=== PATIENT | male | born 1995 | race Caucasian/White ===

== ENCOUNTER 2020-11-13 17:17 | Inpatient (IN) | payer MEDICAID ==
[~2020-11-13] VITALS: Ht 167.6 cm; Wt 55.6 kg
[2020-11-13 21:53] LABS: BASOPHILS % 0.4 % (0.0-2.0); EOSINOPHILS % 1.3 % (0.0-5.0); HEMOGLOBIN. 15.1 g/dL (14.0-18.0); LYMPHOCYTES % 23.1 % (20.0-50.0); MEAN CORPUSCULAR HEMOGLOBIN 30.5 pg (28.0-32.0); MEAN PLATELET VOLUME 8.3 fl (7.4-10.4); MONOCYTES % 8.5 % (2.0-8.0); NEUTROPHILS % 66.7 % (40.0-76.0); PLATELET 301 x1000/uL (130-400); RED BLOOD CELL COUNT 4.94 mill/uL (4.7-6.1)
[2020-11-13 22:00] LABS: CHLORIDE 109 mEq/L (98-107)
[2020-11-13 22:06] LABS: ETHANOL BLOOD < 10 mg/dL
[2020-11-13 23:36] LABS: CLARITY URINE CLEAR (CLEAR); COLOR URINE YELLOW (YELLOW); KETONES URINE NEGATIVE (NEGATIVE); LEUKOCYTE ESTERASE URINE NEGATIVE (NEGATIVE); NITRITE URINE NEGATIVE (NEGATIVE); OCCULT BLOOD URINE TRACE (NEGATIVE); PROTEIN URINE 2+ (NEGATIVE); SPECIFIC GRAVITY URINE 1.016 (1.005-1.030); UROBILINOGEN URINE 0.2 E.U./dL (0.2-1.0)
[2020-11-13] MEDS ORDERED: DEXTROSE 50% WATER 50ML SYRINGE IV ONE (23:45)
[2020-11-13 23:48] LABS: *AMPHETAMINES SCREEN URINE NEGATIVE (NEGATIVE); *BARBITURATES SCREEN URINE NEGATIVE (NEGATIVE); *BENZODIAZEPINES SCREEN URINE NEGATIVE (NEGATIVE); *COCAINE SCREEN URINE NEGATIVE (NEGATIVE)
[2020-11-13 23:49] LABS: CANNABINOID URINE SCREEN PRESUMTIVE POSITIVE (NEGATIVE); METHADONE URINE SCREEN NEGATIVE (NEGATIVE); OPIATES URINE SCREEN NEGATIVE (NEGATIVE); PHENCYCLIDINE URINE SCREEN NEGATIVE (NEGATIVE)
[2020-11-14] MEDS ORDERED: ACETAMINOPHEN 325MG TABLET PO PRN (01:00)
[2020-11-14] MEDS ORDERED: ONDANSETRON HCL 4MG/2ML INJ IV PRN (01:00)
[2020-11-14] MEDS ORDERED: SODIUM CHLORIDE 0.9% 1,000 ML IV ONE (02:00)
[2020-11-14] MEDS ORDERED: FOLIC ACID 1 MG, THIAMINE HCL 100 MG in DEXTROSE 5% WATER 1,000 ML IV NR (03:00)
[2020-11-14] MEDS ORDERED: MULTIVITAMINS,THER W-MINERALS TABLET PO NR (03:00)
[2020-11-14 13:35] VITALS: BP 107/64
[2020-11-14 14:00] VITALS: BP 124/80
[2020-11-14 16:00] VITALS: BP 124/80
[2020-11-14 18:00] VITALS: BP 116/64
[2020-11-14 20:00] VITALS: BP 121/84
[2020-11-14 22:00] VITALS: BP 118/68
[2020-11-14 22:09] LABS: CHLORIDE 111 mEq/L (98-107)
[2020-11-15] VITALS (12 sets, daily range): BP systolic 97–138; BP diastolic 57–79
[2020-11-15 06:59] LABS: CHLORIDE 111 mEq/L (98-107)
[2020-11-15 07:07] LABS: BASOPHILS % 0.4 % (0.0-2.0); EOSINOPHILS % 1.6 % (0.0-5.0); HEMATOCRIT. 41.1 % (42.0-52.0); HEMOGLOBIN. 14.2 g/dL (14.0-18.0); LYMPHOCYTES % 23.3 % (20.0-50.0); MEAN CORPUSCULAR HEMOGLOBIN 30.6 pg (28.0-32.0); MEAN CORPUSCULAR VOLUME 88.5 fL (80.0-94.0); MEAN PLATELET VOLUME 8.5 fl (7.4-10.4); NEUTROPHILS % 65.7 % (40.0-76.0); PLATELET 272 x1000/uL (130-400); RED BLOOD CELL COUNT 4.64 mill/uL (4.7-6.1); RED CELL DISTRIBUTION WIDTH 13.4 % (11.6-14.6)
[2020-11-15] MEDS ORDERED: INSULIN GLARGINE UD 100 UNITS/ML SYR SUBCUT SCH ×2 (22:00)
[2020-11-16] VITALS (8 sets, daily range): BP systolic 117–128; BP diastolic 49–77
[2020-11-16 08:20] LABS: CHLORIDE 106 mEq/L (98-107)
[2020-11-16] MEDS ORDERED: INSULIN LISPRO 100 UNITS/ML SUBCUT SCH (13:00)
[2020-11-16] MEDS ORDERED: INSULIN GLARGINE UD 100 UNITS/ML SYR SUBCUT SCH (22:00)
== END 2020-11-16 19:23 | disposition home or self-care (01) | DRG 52 ==
LOC: ER 17:17 → EDBD 17:17 → MICUSO 11-14 00:49 → EDBEDREQDT 11-14 00:53 → EDBEDREQTM 11-14 00:53 → EDBEDREQ 11-14 00:53 → EDBEDREQSVC 11-14 01:21 → EDBEDREQTM 11-14 01:21 → 5EST 11-14 13:12
PROVIDERS: ADMIT Family Medicine Adult Medicine; ATTEND Family Medicine Adult Medicine
DX: G92.8 Other toxic encephalopathy (principal); E10.649 Type 1 diabetes mellitus with hypoglycemia without coma; F25.9 Schizoaffective disorder, unspecified; F41.9 Anxiety disorder, unspecified; R00.0 Tachycardia, unspecified; T50.995A Adverse effect of other drugs, medicaments and biological substances, initial encounter; D72.829 Elevated white blood cell count, unspecified; F17.200 Nicotine dependence, unspecified, uncomplicated; Z79.4 Long term (current) use of insulin; Z91.14 Patient's other noncompliance with medication regimen; Y92.89 Other specified places as the place of occurrence of the external cause; Z79.899 Other long term (current) drug therapy
CPT/HCPCS: 36415; 80048; 80053; 80305; 80307; 80320; 80329; 81003; 82962; 83036; 84443; 85025; 93005; 99285; J1815; J3411; J3490; J7070; G0480

== ENCOUNTER 2021-01-08 21:40 | Inpatient (IN) | payer MEDICAID ==
[~2021-01-08] VITALS: Ht 160 cm; Wt 42.6 kg
[2021-01-08] MEDS ORDERED: ONDANSETRON HCL 4MG/2ML INJ IV ONE (22:00)
[2021-01-08] MEDS ORDERED: SODIUM CHLORIDE 0.9% 1,000 ML IV ONE ×3 (22:00→23:15)
[2021-01-08] MEDS ORDERED: INSULIN REGULAR (HUMULIN R) 300UNITS/3ML VIAL SUBCUT NR (22:29)
[2021-01-08] MEDS ORDERED: INSULIN REGULAR (HUMULIN R) UD 100 UNITS/ML SYR SUBCUT ONE (22:30)
[2021-01-08 22:45] LABS: BASOPHILS % 0.4 % (0.0-2.0); EOSINOPHILS % 0.7 % (0.0-5.0); HEMATOCRIT. 47.3 % (42.0-52.0); HEMOGLOBIN. 16.3 g/dL (14.0-18.0); LYMPHOCYTES % 29.1 % (20.0-50.0); MEAN CORPUSCULAR HEMOGLOBIN 29.8 pg (28.0-32.0); MEAN CORPUSCULAR VOLUME 86.6 fL (80.0-94.0); MEAN PLATELET VOLUME 8.9 fl (7.4-10.4); MONOCYTES % 7.1 % (2.0-8.0); NEUTROPHILS % 62.7 % (40.0-76.0); PLATELET 338 x1000/uL (130-400); RED BLOOD CELL COUNT 5.47 mill/uL (4.7-6.1); RED CELL DISTRIBUTION WIDTH 12.9 % (11.6-14.6)
[2021-01-08 22:48] LABS: CHLORIDE 107 mEq/L (98-107)
[2021-01-08 22:52] LABS: ETHANOL BLOOD < 10 mg/dL
[2021-01-09] MEDS ORDERED: DEXT 5% IV NR ×2 (00:30→02:00)
[2021-01-09] MEDS ORDERED: ACETYLCYSTEINE IV NR ×2 (00:30→02:00)
[2021-01-09] MEDS ORDERED: SODIUM BICARBONATE 8.4% 1 MEQ/ML 50ML SYR IV ONE ×3 (00:30)
[2021-01-09] MEDS ORDERED: WATER IV NR ×2 (00:30→02:00)
[2021-01-09 00:54] LABS: BASOPHILS % 0.3 % (0.0-2.0); EOSINOPHILS % 0.1 % (0.0-5.0); LYMPHOCYTES % 8.3 % (20.0-50.0); MEAN CORPUSCULAR HEMOGLOBIN 29.3 pg (28.0-32.0); MEAN PLATELET VOLUME 8.4 fl (7.4-10.4); MONOCYTES % 3.5 % (2.0-8.0); NEUTROPHILS % 87.8 % (40.0-76.0); PLATELET 286 x1000/uL (130-400); RED BLOOD CELL COUNT 5.12 mill/uL (4.7-6.1); RED CELL DISTRIBUTION WIDTH 12.8 % (11.6-14.6)
[2021-01-09 01:14] LABS: CHLORIDE 110 mEq/L (98-107)
[2021-01-09 01:54] LABS: PARTIAL THROMBOPLASTIN TIME 22.9 sec (23.4-31.0); PROTHROMBIN TIME 10.7 sec (9.6-11.0)
[2021-01-09 02:22] LABS: CLARITY URINE CLEAR (CLEAR); COLOR URINE YELLOW (YELLOW); KETONES URINE 2+ (NEGATIVE); LEUKOCYTE ESTERASE URINE NEGATIVE (NEGATIVE); NITRITE URINE NEGATIVE (NEGATIVE); OCCULT BLOOD URINE TRACE (NEGATIVE); PROTEIN URINE 2+ (NEGATIVE); SPECIFIC GRAVITY URINE 1.027 (1.005-1.030); UROBILINOGEN URINE 0.2 E.U./dL (0.2-1.0)
[2021-01-09 02:32] LABS: *AMPHETAMINES SCREEN URINE NEGATIVE (NEGATIVE); *BARBITURATES SCREEN URINE NEGATIVE (NEGATIVE); *BENZODIAZEPINES SCREEN URINE NEGATIVE (NEGATIVE)
[2021-01-09 02:33] LABS: *COCAINE SCREEN URINE NEGATIVE (NEGATIVE); CANNABINOID URINE SCREEN NEGATIVE (NEGATIVE); METHADONE URINE SCREEN NEGATIVE (NEGATIVE); OPIATES URINE SCREEN NEGATIVE (NEGATIVE); PHENCYCLIDINE URINE SCREEN NEGATIVE (NEGATIVE)
[2021-01-09] MEDS ORDERED: INSULIN LISPRO 100 UNITS/ML SUBCUT NR (05:45)
[2021-01-09] MEDS ORDERED: ACETYLCYSTEINE IV ONE (07:00)
[2021-01-09] MEDS ORDERED: DEXTROSE 5% IV ONE (07:00)
[2021-01-09] MEDS ORDERED: WATER IV ONE (07:00)
[2021-01-09] MEDS ORDERED: SODIUM BICARBONATE 50 MEQ in DEXTROSE 5% WATER 1,000 ML IV SCH (07:30)
[2021-01-09 11:40] VITALS: BP 143/76
[2021-01-09 12:00] VITALS: BP 143/76
[2021-01-09] MEDS ORDERED: DEXTROSE 50% WATER 50ML SYRINGE IV PRN (12:15)
[2021-01-09] MEDS ORDERED: ONDANSETRON HCL 4MG/2ML INJ IV PRN (12:15)
[2021-01-09] MEDS: BLOOD SUGAR DIAGNOSTIC STRIP TEST SCH ×3 (13:00→21:31)
[2021-01-09] MEDS ORDERED: INSULIN GLARGINE UD 100 UNITS/ML SYR SUBCUT NR (13:00)
[2021-01-09] MEDS: INSULIN LISPRO 100 UNITS/ML SUBCUT SCH ×3 (13:36→21:30)
[2021-01-09 16:02] VITALS: BP 116/58
[2021-01-09] MEDS: ONDANSETRON HCL 4MG/2ML INJ IV PRN (17:03)
[2021-01-09 20:00] VITALS: BP 118/61
[2021-01-09 20:22] LABS: CHLORIDE 96 mEq/L (98-107)
[2021-01-09] MEDS: INSULIN GLARGINE UD 100 UNITS/ML SYR SUBCUT SCH (21:31)
[2021-01-09] MEDS: KCL 20MEQ/100ML PREMIX 100 ML IV SCH (22:37)
[2021-01-10] VITALS: BP 122/61
[2021-01-10] MEDS: KCL 20MEQ/100ML PREMIX 100 ML IV SCH ×4 (00:52→17:11)
[2021-01-10] MEDS: ONDANSETRON HCL 4MG/2ML INJ IV PRN (01:34)
[2021-01-10 01:58] LABS: INR 1.1; PROTHROMBIN TIME 11.4 sec (9.6-11.0)
[2021-01-10 04:00] VITALS: BP 119/65
[2021-01-10] MEDS: BLOOD SUGAR DIAGNOSTIC STRIP TEST SCH ×4 (07:20→21:56)
[2021-01-10 07:39] LABS: BASOPHILS % 0.1 % (0.0-2.0); EOSINOPHILS % 0.6 % (0.0-5.0); HEMATOCRIT. 38.9 % (42.0-52.0); HEMOGLOBIN. 13.4 g/dL (14.0-18.0); LYMPHOCYTES % 21.8 % (20.0-50.0); MEAN CORPUSCULAR HEMOGLOBIN 29.5 pg (28.0-32.0); MEAN CORPUSCULAR VOLUME 85.7 fL (80.0-94.0); MEAN PLATELET VOLUME 8.5 fl (7.4-10.4); MONOCYTES % 7.3 % (2.0-8.0); NEUTROPHILS % 70.2 % (40.0-76.0); PLATELET 271 x1000/uL (130-400); RED BLOOD CELL COUNT 4.54 mill/uL (4.7-6.1); RED CELL DISTRIBUTION WIDTH 12.9 % (11.6-14.6)
[2021-01-10] MEDS: INSULIN LISPRO 100 UNITS/ML SUBCUT SCH ×4 (07:50→22:03)
[2021-01-10 08:00] VITALS: BP 108/50
[2021-01-10 08:00] LABS: CHLORIDE 103 mEq/L (98-107)
[2021-01-10] MEDS ORDERED: POTASSIUM CHLORIDE INJ 40 MEQ in DEXT 5% WATER 250 ML IV ONE (09:30)
[2021-01-10] MEDS ORDERED: POTASSIUM CHLORIDE 20MEQ TABLET SR PO NR (09:30)
[2021-01-10] MEDS: INSULIN GLARGINE UD 100 UNITS/ML SYR SUBCUT SCH ×2 (09:52→22:03)
[2021-01-10 12:00] VITALS: BP 113/68
[2021-01-10 16:00] VITALS: BP 126/70
[2021-01-10] MEDS: ARIPIPRAZOLE 5MG TABLET PO SCH (17:11)
[2021-01-10] MEDS ORDERED: CEFTRIAXONE 1 G PREMIX 50 ML IV SCH (19:30)
[2021-01-10 20:00] VITALS: BP 124/63
[2021-01-10] MEDS: CEFTRIAXONE 1,000 MG in DEXTROSE 5% WATER 50 ML IV SCH (21:59)
[2021-01-11] VITALS: BP 126/71
[2021-01-11 04:00] VITALS: BP 104/54
[2021-01-11] MEDS: BLOOD SUGAR DIAGNOSTIC STRIP TEST SCH ×4 (06:32→21:00)
[2021-01-11 06:57] LABS: CHLORIDE 107 mEq/L (98-107)
[2021-01-11] MEDS: INSULIN LISPRO 100 UNITS/ML SUBCUT SCH ×4 (07:15→21:11)
[2021-01-11 07:32] LABS: BASOPHILS % 0.3 % (0.0-2.0); EOSINOPHILS % 1.5 % (0.0-5.0); HEMATOCRIT. 37.3 % (42.0-52.0); HEMOGLOBIN. 12.8 g/dL (14.0-18.0); LYMPHOCYTES % 32.6 % (20.0-50.0); MEAN CORPUSCULAR HEMOGLOBIN 29.9 pg (28.0-32.0); MEAN CORPUSCULAR VOLUME 86.9 fL (80.0-94.0); MEAN PLATELET VOLUME 8.9 fl (7.4-10.4); MONOCYTES % 11.6 % (2.0-8.0); PLATELET 239 x1000/uL (130-400); RED BLOOD CELL COUNT 4.29 mill/uL (4.7-6.1); RED CELL DISTRIBUTION WIDTH 12.8 % (11.6-14.6)
[2021-01-11 08:00] VITALS: BP 108/61
[2021-01-11] MEDS: ARIPIPRAZOLE 5MG TABLET PO SCH ×2 (08:24→17:01)
[2021-01-11] MEDS: ONDANSETRON HCL 4MG/2ML INJ IV PRN (08:43)
[2021-01-11] MEDS: INSULIN GLARGINE UD 100 UNITS/ML SYR SUBCUT SCH ×2 (10:31→21:11)
[2021-01-11 12:00] VITALS: BP 110/58
[2021-01-11 16:00] VITALS: BP 114/60
[2021-01-11 20:00] VITALS: BP 109/53
[2021-01-11] MEDS: CEFTRIAXONE 1,000 MG in DEXTROSE 5% WATER 50 ML IV SCH (21:06)
[2021-01-12] VITALS: BP 108/58
[2021-01-12 04:00] VITALS: BP 95/51
[2021-01-12 06:00] LABS: BASOPHILS % 0.5 % (0.0-2.0); EOSINOPHILS % 2.7 % (0.0-5.0); HEMATOCRIT. 36.9 % (42.0-52.0); HEMOGLOBIN. 12.7 g/dL (14.0-18.0); LYMPHOCYTES % 41.7 % (20.0-50.0); MEAN CORPUSCULAR HEMOGLOBIN 29.7 pg (28.0-32.0); MEAN CORPUSCULAR VOLUME 86.6 fL (80.0-94.0); MEAN PLATELET VOLUME 8.6 fl (7.4-10.4); MONOCYTES % 8.5 % (2.0-8.0); NEUTROPHILS % 46.6 % (40.0-76.0); PLATELET 226 x1000/uL (130-400); RED BLOOD CELL COUNT 4.26 mill/uL (4.7-6.1); RED CELL DISTRIBUTION WIDTH 12.8 % (11.6-14.6)
[2021-01-12 06:17] LABS: CHLORIDE 108 mEq/L (98-107)
[2021-01-12] MEDS: BLOOD SUGAR DIAGNOSTIC STRIP TEST SCH ×4 (07:19→20:40)
[2021-01-12] MEDS: INSULIN LISPRO 100 UNITS/ML SUBCUT SCH ×4 (07:50→21:21)
[2021-01-12 07:59] VITALS: BP 103/60
[2021-01-12] MEDS: ARIPIPRAZOLE 5MG TABLET PO SCH ×2 (08:37→17:21)
[2021-01-12] MEDS: INSULIN GLARGINE UD 100 UNITS/ML SYR SUBCUT SCH ×2 (09:48→21:21)
[2021-01-12 12:00] VITALS: BP 107/65
[2021-01-12 16:00] VITALS: BP 115/66
[2021-01-12 16:53] LABS: CHLORIDE 106 mEq/L (98-107)
[2021-01-12 20:00] VITALS: BP 120/69
[2021-01-12] MEDS: CEFTRIAXONE 1,000 MG in DEXTROSE 5% WATER 50 ML IV SCH (21:13)
[2021-01-13] VITALS (8 sets, daily range): BP systolic 111–128; BP diastolic 65–77
[2021-01-13] MEDS: BLOOD SUGAR DIAGNOSTIC STRIP TEST SCH ×4 (06:56→20:37)
[2021-01-13] MEDS: ARIPIPRAZOLE 5MG TABLET PO SCH ×2 (08:50→16:46)
[2021-01-13] MEDS: INSULIN LISPRO 100 UNITS/ML SUBCUT SCH ×4 (08:52→20:37)
[2021-01-13] MEDS: INSULIN GLARGINE UD 100 UNITS/ML SYR SUBCUT SCH ×2 (10:34→22:13)
[2021-01-13] MEDS: ONDANSETRON HCL 4MG/2ML INJ IV PRN (16:44)
[2021-01-13] MEDS ORDERED: ACETAMINOPHEN 325MG TABLET PO PRN (16:45)
[2021-01-13] MEDS: CEFTRIAXONE 1,000 MG in DEXTROSE 5% WATER 50 ML IV SCH (20:36)
== END 2021-01-13 22:40 | DRG 817 ==
LOC: ER 21:40 → 6WST 01-09 03:37 → ENRESERV 01-09 07:22
PROVIDERS: ADMIT Internal Medicine; ATTEND Internal Medicine
DX: T39.1X2A Poisoning by 4-Aminophenol derivatives, intentional self-harm, initial encounter (principal); R45.851 Suicidal ideations; F29 Unspecified psychosis not due to a substance or known physiological condition; N39.0 Urinary tract infection, site not specified; E87.8 Other disorders of electrolyte and fluid balance, not elsewhere classified; E11.65 Type 2 diabetes mellitus with hyperglycemia; B96.20 Unspecified Escherichia coli [E. coli] as the cause of diseases classified elsewhere; E87.6 Hypokalemia; T39.312A Poisoning by propionic acid derivatives, intentional self-harm, initial encounter; F10.10 Alcohol abuse, uncomplicated; F12.10 Cannabis abuse, uncomplicated; F41.9 Anxiety disorder, unspecified; Z20.822 Contact with and (suspected) exposure to COVID-19; Z83.3 Family history of diabetes mellitus; Y92.89 Other specified places as the place of occurrence of the external cause; Z91.52 Personal history of nonsuicidal self-harm
CPT/HCPCS: 36415; 71045; 80048; 80053; 80305; 80307; 80320; 80329; 81003; 82962; 84145; 84450; 84460; 85025; 87077; 87186; 87426; 93005; 99291; C9803; J0132; J0696; J1815; J2405; J3480; J3490; J7030; J7060; J7070; U0003; U0005; G0480

== ENCOUNTER 2023-11-14 18:50 | Emergency (ER) | payer MEDICAID ==
[~2023-11-14] VITALS: Ht 160 cm; Wt 54.3 kg
[~2023-11-14 18:50] MED LIST: AMLO10TA80 PO; ATOR20TA65 PO; CHOL400D7 PO; ERGO1250 PO; EZET10TA81 PO; HYDR12.54 PO; INSLIS SUBCUT; INSU100I28 SQ; INSU300I12 SUBCUT; LEVO25TA7 PO; LISI40TA13 PO; LOSA25TA26 PO; MULT-207 PO; SPIR25TA6 PO; [UNRECOGNIZED DRUG - CODE] MC
[2023-11-14 18:51] VITALS: O2SAT 99
[2023-11-14 19:02] VITALS: TEMP 98.2; O2SAT 100
[2023-11-14 20:32] LABS: BASOPHILS % 0.6 % (0.0-2.0); EOSINOPHILS % 2.4 % (0.0-5.0); HEMATOCRIT. 25.8 % (42.0-52.0); HEMOGLOBIN. 8.8 g/dL (14.0-18.0); LYMPHOCYTES % 19.8 % (20.0-50.0); MEAN CORPUSCULAR HEMOGLOBIN 31.6 pg (28.0-32.0); MEAN CORPUSCULAR VOLUME 92.9 fL (80.0-94.0); MONOCYTES % 11.7 % (2.0-8.0); NEUTROPHILS % 65.5 % (40.0-76.0); RED BLOOD CELL COUNT 2.78 mill/uL (4.7-6.1); RED CELL DISTRIBUTION WIDTH 15.1 % (11.6-14.6); WHITE BLOOD COUNT 12.4 x1000/uL (4.5-11.0)
[2023-11-14 20:33] LABS: POTASSIUM 3.7 mEq/L (3.5-5.1)
[2023-11-14 20:34] LABS: CALCIUM 9.1 mg/dL (8.7-10.4)
[2023-11-14 20:37] LABS: DIFFERENTIAL COMMENT 1
[2023-11-14 20:39] LABS: CREATININE 3.8 mg/dL (0.6-1.3)
[2023-11-14 21:14] LABS: MEAN PLATELET VOLUME 8.9 fl (7.4-10.4); PLATELET 320 x1000/uL (130-400)
[2023-11-15 00:37] LABS: CLARITY URINE CLEAR (CLEAR); COLOR URINE YELLOW (YELLOW); GLUCOSE URINE 2+ (NEGATIVE); KETONES URINE NEGATIVE (NEGATIVE); LEUKOCYTE ESTERASE URINE NEGATIVE (NEGATIVE); NITRITE URINE NEGATIVE (NEGATIVE); OCCULT BLOOD URINE TRACE (NEGATIVE); PH URINE 7.5 (4.5-8.0); PROTEIN URINE 3+ (NEGATIVE); SPECIFIC GRAVITY URINE 1.024 (1.005-1.030); UROBILINOGEN URINE 0.2 E.U./dL (0.2-1.0)
[2023-11-15] MEDS ORDERED: HYDROCODONE/ACETAMINOPHEN 5/325MG TABLET PO ONE (00:45)
[2023-11-15 02:34] LABS: WBC URINE 0-2 /hpf (0-2)
[2023-11-15 02:37] LABS: SQUAMOUS EPITHELIAL CELL URINE 1+ /lpf (RARE/1+)
[2023-11-15 02:45] VITALS: BP 129/58; PULSE 99; RESP 18
[2023-11-15 02:45] LABS: BACTERIA URINE TRACE
[2023-11-15] MEDS: HYDROCODONE/ACETAMINOPHEN 5/325MG TABLET PO NR (02:45)
[2023-11-15] MEDS ORDERED: T3 PO (03:20)
== END 2023-11-15 03:47 | disposition home or self-care (01) ==
LOC: ER 18:50
DX: M54.50 Low back pain, unspecified (principal); I12.0 Hypertensive chronic kidney disease with stage 5 chronic kidney disease or end stage renal disease; E11.22 Type 2 diabetes mellitus with diabetic chronic kidney disease; D64.9 Anemia, unspecified; N18.6 End stage renal disease; Z99.2 Dependence on renal dialysis; Z79.899 Other long term (current) drug therapy; Z79.4 Long term (current) use of insulin; Z88.5 Allergy status to narcotic agent
CPT/HCPCS: 36415; 72100; 80048; 81003; 85025; 99284

== ENCOUNTER 2024-08-21 08:03 | Emergency (ER) | payer MEDICAID ==
[~2024-08-21] VITALS: Ht 160 cm; Wt 56.0 kg
[~2024-08-21 08:03] MED LIST changes: -AMLO10TA80 PO; +CARV6.2548 MT; -CHOL400D7 PO; +FERR-63 PO; +FURO40TA5 PO; -INSU300I12 SUBCUT; -LISI40TA13 PO
[2024-08-21] MEDS: DICYCLOMINE 10 MG/5 ML ORAL SYR PO STA (08:21)
[2024-08-21] MEDS: MAGNESIUM/ALUMINUM HYDROXIDE/SIMETHICONE 30ML UDC PO STA (08:35)
[2024-08-21] MEDS: ONDANSETRON 4MG ODT PO STA (08:35)
[2024-08-21] MEDS: DICYCLOMINE HCL 10MG CAPSULE PO SCH (08:35)
[2024-08-21 08:54] LABS: BASOPHILS % 0.6 % (0.0-2.0); EOSINOPHILS % 1.5 % (0.0-5.0); HEMATOCRIT. 25.8 % (42.0-52.0); HEMOGLOBIN. 8.5 g/dL (14.0-18.0); LYMPHOCYTES % 9.6 % (20.0-50.0); MEAN PLATELET VOLUME 9.7 fl (7.4-10.4); MONOCYTES % 6.8 % (2.0-8.0); NEUTROPHILS % 81.5 % (40.0-76.0); PLATELET 155 x1000/uL (130-400); RED BLOOD CELL COUNT 2.77 mill/uL (4.7-6.1); RED CELL DISTRIBUTION WIDTH 17.7 % (11.6-14.6)
[2024-08-21 09:04] LABS: UREA NITROGEN BLOOD 68 mg/dL (9-23)
[2024-08-21 09:05] LABS: ASPARTATE AMINOTRANSFERASE 20 IU/L (<34)
[2024-08-21 09:06] LABS: BILIRUBIN DIRECT 0.3 mg/dL (<=3.0); BILIRUBIN TOTAL 0.8 mg/dL (0.1-1.0); PROTEIN TOTAL 7.5 g/dL (6.0-8.3)
[2024-08-21 09:43] LABS: CREATININE 10.3 mg/dL (0.6-1.3)
[2024-08-21] MEDS ORDERED: CALCIUM GLUCONATE 1,000 MG in DEXT 5% WATER 100 ML IV ONE (09:45)
[2024-08-21] MEDS ORDERED: INSULIN REGULAR (HUMULIN R) 1000UNITS/10ML VIAL IV ONE (09:45)
[2024-08-21 10:10] VITALS: PULSE 82; RESP 20; O2SAT 100
[2024-08-21] MEDS: ALBUTEROL (0.083%) 2.5MG/3ML NEB HHN SCH (10:10)
[2024-08-21 10:28] VITALS: TEMP 36.7; O2SAT 100
[2024-08-21 10:52] VITALS: BP 146/71; PULSE 81; RESP 19; TEMP 98.06
[2024-08-21] MEDS: CALCIUM GLUCONATE 1GM PREMIX 50 ML IV NR (11:23)
[2024-08-21] MEDS: INSULIN REGULAR (HUMULIN R) 1000UNITS/10ML VIAL IV NR (12:43)
[2024-08-21] MEDS: DEXTROSE 50% WATER 50ML SYRINGE IV ONE (12:44)
[2024-08-21] MEDS ORDERED: HYDROCODONE/ACETAMINOPHEN 5/325MG TABLET PO PRN (14:00)
[2024-08-21] MEDS ORDERED: ONDANSETRON HCL 4MG/2ML INJ IV PRN (14:00)
[2024-08-21] MEDS ORDERED: HYDROCODONE/ACETAMINOPHEN 7.5/325MG TABLET PO PRN (14:00)
[2024-08-21] MEDS ORDERED: MORPHINE SULFATE 2 MG/ML INJ (NOT FOR IM USE) IV PRN (14:00)
[2024-08-21] MEDS ORDERED: ACETAMINOPHEN 325MG TABLET PO PRN (14:00)
[2024-08-21] MEDS ORDERED: IPRATROPIUM/ALBUTEROL 0.5-3(2.5)MG/3ML NEB NEB PRN (14:00)
[2024-08-21] MEDS ORDERED: MAGNESIUM/ALUMINUM HYDROXIDE/SIMETHICONE 30ML UDC PO PRN (14:00)
[2024-08-21] MEDS ORDERED: ENOXAPARIN 30MG/0.3ML SYR SUBCUT SCH (21:00)
[2024-08-22] MEDS ORDERED: LISINOPRIL 10MG TABLET PO SCH (09:00)
== END 2024-08-21 13:18 | disposition left against medical advice (07) ==
LOC: ER 08:06 → EDBEDREQ 10:17 → EDBEDREQTM 10:17 → ENRESERV 11:03 → CANBEDREQ 12:19 → ER 13:18
DX: E87.5 Hyperkalemia (principal); E11.22 Type 2 diabetes mellitus with diabetic chronic kidney disease; E11.319 Type 2 diabetes mellitus with unspecified diabetic retinopathy without macular edema; E11.65 Type 2 diabetes mellitus with hyperglycemia; I13.2 Hypertensive heart and chronic kidney disease with heart failure and with stage 5 chronic kidney disease, or end stage renal disease; D63.1 Anemia in chronic kidney disease; I50.9 Heart failure, unspecified; N18.6 End stage renal disease; Z55.6 Problems related to health literacy; Z79.4 Long term (current) use of insulin; Z79.890 Hormone replacement therapy; Z79.899 Other long term (current) drug therapy; Z91.158 Patient's noncompliance with renal dialysis for other reason; Z99.2 Dependence on renal dialysis
CPT/HCPCS: 80076; 80048; 83690; 85025; 36415; 71045; 93005; 96374; 96375; 99291; Q0162; J1815; Z7610; J0610; J7060

== ENCOUNTER 2024-11-15 19:40 | Inpatient (IN) | payer MEDICARE, MEDICAID ==
[~2024-11-15] VITALS: Ht 160 cm; Wt 49.9 kg
[2024-11-15 20:35] VITALS: O2SAT 96
[2024-11-15 23:27] LABS: BASOPHILS % 0.7 % (0.0-2.0); EOSINOPHILS % 2.1 % (0.0-5.0); HEMATOCRIT. 34.3 % (42.0-52.0); HEMOGLOBIN. 11.1 g/dL (14.0-18.0); LYMPHOCYTES % 20.3 % (20.0-50.0); MEAN PLATELET VOLUME 9.3 fl (7.4-10.4); MONOCYTES % 9.3 % (2.0-8.0); NEUTROPHILS % 67.6 % (40.0-76.0); PLATELET 206 x1000/uL (130-400); RED BLOOD CELL COUNT 3.66 mill/uL (4.7-6.1); RED CELL DISTRIBUTION WIDTH 18.7 % (11.6-14.6)
[2024-11-15 23:41] LABS: UREA NITROGEN BLOOD 32 mg/dL (9-23)
[2024-11-15 23:43] LABS: ASPARTATE AMINOTRANSFERASE 18 IU/L (<34); BILIRUBIN DIRECT 0.7 mg/dL (<=3.0); TROPONIN I HIGH SENSITIVITY 15 ng/L (3.0-53)
[2024-11-15 23:44] LABS: BILIRUBIN TOTAL 1.3 mg/dL (0.1-1.0); PROTEIN TOTAL 7.4 g/dL (6.0-8.3)
[2024-11-15 23:47] LABS: CREATININE 4.9 mg/dL (0.6-1.3)
[2024-11-16] VITALS (11 sets, daily range): BP systolic 133–170; BP diastolic 69–94; PULSE 74–110; RESP 18–20; TEMP 35.6–37; O2SAT 75–100
[2024-11-16] MEDS: HYDRALAZINE 20MG/ML VIAL IV NR (00:52)
[2024-11-16] MEDS: HYDRALAZINE 20MG/ML VIAL IV PRN (06:00)
[2024-11-16] MEDS: BLOOD SUGAR DIAGNOSTIC STRIP TEST SCH (06:02)
[2024-11-16] MEDS: INSULIN LISPRO 100 UNITS/ML SUBCUT SCH (06:26)
[2024-11-16] MEDS ORDERED: FOLI0.8T23 MT (08:20)
[2024-11-16] MEDS ORDERED: CALC-26 PO (08:20)
[2024-11-16] MEDS: ATORVASTATIN CALCIUM 40MG TABLET PO SCH (08:21)
[2024-11-16] MEDS: CARVEDILOL 6.25 MG TABLET PO SCH (08:22)
[2024-11-16] MEDS: LOSARTAN 25 MG TABLET PO SCH (08:22)
[2024-11-16] MEDS: INSULIN GLARGINE 100 UNITS/ML SUBCUT SCH (09:38)
[2024-11-16 12:04] LABS: CLARITY URINE CLEAR (CLEAR); COLOR URINE YELLOW (YELLOW); GLUCOSE URINE 2+ (NEGATIVE); KETONES URINE NEGATIVE (NEGATIVE); LEUKOCYTE ESTERASE URINE NEGATIVE (NEGATIVE); NITRITE URINE NEGATIVE (NEGATIVE); OCCULT BLOOD URINE TRACE (NEGATIVE); PH URINE 8.0 (4.5-8.0); PROTEIN URINE 4+ (NEGATIVE); SPECIFIC GRAVITY URINE 1.019 (1.005-1.030); UROBILINOGEN URINE 0.2 E.U./dL (0.2-1.0)
[2024-11-16 12:19] LABS: *AMPHETAMINES SCREEN URINE NEGATIVE (NEGATIVE)
[2024-11-16 12:20] LABS: *BARBITURATES SCREEN URINE NEGATIVE (NEGATIVE); *BENZODIAZEPINES SCREEN URINE NEGATIVE (NEGATIVE); *COCAINE SCREEN URINE NEGATIVE (NEGATIVE); CANNABINOID URINE SCREEN PRESUMPTIVE POSITIVE (NEGATIVE); ECSTASY MDMA SCREEN URINE NEGATIVE (NEGATIVE); METHADONE URINE SCREEN NEGATIVE (NEGATIVE); OPIATES URINE SCREEN NEGATIVE (NEGATIVE); PHENCYCLIDINE URINE SCREEN NEGATIVE (NEGATIVE)
[2024-11-16 12:22] LABS: BACTERIA URINE 1+; SQUAMOUS EPITHELIAL CELL URINE FEW /lpf (RARE/1+); YEAST URINE NONE SEEN
[2024-11-16 18:17] LABS: BASOPHILS % 1.0 % (0.0-2.0); EOSINOPHILS % 2.5 % (0.0-5.0); HEMATOCRIT. 31.1 % (42.0-52.0); HEMOGLOBIN. 10.2 g/dL (14.0-18.0); LYMPHOCYTES % 15.6 % (20.0-50.0); MEAN PLATELET VOLUME 9.7 fl (7.4-10.4); MONOCYTES % 9.8 % (2.0-8.0); NEUTROPHILS % 71.1 % (40.0-76.0); PLATELET 200 x1000/uL (130-400); RED BLOOD CELL COUNT 3.34 mill/uL (4.7-6.1); RED CELL DISTRIBUTION WIDTH 18.5 % (11.6-14.6)
[2024-11-16 18:34] LABS: TRIGLYCERIDE 115.0 mg/dL (0-150)
[2024-11-16 18:35] LABS: LDL CHOLESTEROL 136.0 mg/dL (5-100)
[2024-11-16 18:39] LABS: TROPONIN I HIGH SENSITIVITY 12.0 ng/L (3.0-53)
[2024-11-16 19:13] LABS: HEPATITIS A AB IGM NEGATIVE (Negative)
[2024-11-16 19:14] LABS: HEPATITIS B CORE AB IGM NEGATIVE (Negative); HEPATITIS C AB NON REACTIVE (Neg) (Negative)
[2024-11-17] VITALS (11 sets, daily range): BP systolic 122–190; BP diastolic 64–84; PULSE 66–82; RESP 20; TEMP 36.3–36.9; O2SAT 96–98
[2024-11-17] MEDS: HYDRALAZINE HCL 50MG TABLET PO SCH (16:30)
== END 2024-11-17 17:04 | disposition home or self-care (01) | DRG 291 ==
LOC: ER 19:40 → EDBEDREQTM 11-16 00:20 → EDBEDREQDT 11-16 00:20 → EDBEDREQ 11-16 00:20 → ENRESERV 11-16 00:27 → 8WST 11-16 01:27
PROVIDERS: ADMIT Internal Medicine; ATTEND Internal Medicine Nephrology
PROC: 5A1D70Z Performance of Urinary Filtration, Intermittent, Less than 6 Hours Per Day (ICD-10-PCS; principal; 2024-11-16)
PROC: 5A1D70Z Performance of Urinary Filtration, Intermittent, Less than 6 Hours Per Day (ICD-10-PCS; 2024-11-17)
DX: I13.2 Hypertensive heart and chronic kidney disease with heart failure and with stage 5 chronic kidney disease, or end stage renal disease (principal); I50.33 Acute on chronic diastolic (congestive) heart failure; N18.6 End stage renal disease; E11.22 Type 2 diabetes mellitus with diabetic chronic kidney disease; E11.65 Type 2 diabetes mellitus with hyperglycemia; D63.1 Anemia in chronic kidney disease; F20.9 Schizophrenia, unspecified; Z99.2 Dependence on renal dialysis; Z79.4 Long term (current) use of insulin; Z91.148 Patient's other noncompliance with medication regimen for other reason; Z79.899 Other long term (current) drug therapy
CPT/HCPCS: 36415; 71045; 80048; 80061; 80076; 80305; 81003; 82962; 83880; 84145; 84484; 85025; 86705; 86709; 87340; 90935; 93005; 96374; 99285; J0360; J1815

== ENCOUNTER 2024-12-30 18:52 | Inpatient (IN) | payer MEDICARE, MEDICAID ==
[~2024-12-30] VITALS: Ht 61 cm; Wt 59.0 kg
[~2024-12-30 18:52] MED LIST changes: +CALC-26 PO; +FOLI0.8T23 MT
[2024-12-30] MEDS ORDERED: DOCUSATE SODIUM 100MG CAPSULE PO PRN (21:45)
[2024-12-30 21:55] LABS: BASOPHILS % 1.4 % (0.0-2.0); EOSINOPHILS % 2.8 % (0.0-5.0); HEMATOCRIT. 31.4 % (42.0-52.0); HEMOGLOBIN. 10.0 g/dL (14.0-18.0); LYMPHOCYTES % 14.2 % (20.0-50.0); MEAN PLATELET VOLUME 9.3 fl (7.4-10.4); MONOCYTES % 10.9 % (2.0-8.0); NEUTROPHILS % 70.7 % (40.0-76.0); PLATELET 165 x1000/uL (130-400); RED BLOOD CELL COUNT 3.31 mill/uL (4.7-6.1); RED CELL DISTRIBUTION WIDTH 21.5 % (11.6-14.6)
[2024-12-30 22:02] LABS: CREATININE 4.6 mg/dL (0.6-1.3); UREA NITROGEN BLOOD 42.0 mg/dL (9-23)
[2024-12-30 22:03] LABS: TROPONIN I HIGH SENSITIVITY 10 ng/L (3.0-53)
[2024-12-30 22:04] LABS: TROPONIN I HIGH SENSITIVITY 10 ng/L (3.0-53)
[2024-12-30] MEDS: MORPHINE SULFATE 2 MG/ML INJ (NOT FOR IM USE) IV PRN (22:17)
[2024-12-30] MEDS: HYDRALAZINE HCL 100MG TABLET PO SCH (22:37)
[2024-12-30 23:22] VITALS: PULSE 76; RESP 14; O2SAT 98
[2024-12-30] MEDS: IPRATROPIUM/ALBUTEROL 0.5-3(2.5)MG/3ML NEB NEB SCH (23:22)
[2024-12-31] VITALS (16 sets, daily range): BP systolic 156–198; BP diastolic 86–108; PULSE 75–84; RESP 16–20; TEMP 35.0836–36.5; O2SAT 95–99
[2024-12-31] MEDS: CLONIDINE 0.1MG TABLET PO PRN (01:25)
[2024-12-31] MEDS ORDERED: *PATIENT'S OWN MEDICATION STORAGE XX SCH (05:15)
[2024-12-31 08:18] LABS: BASOPHILS % 0.6 % (0.0-2.0); EOSINOPHILS % 2.7 % (0.0-5.0); HEMATOCRIT. 29.9 % (42.0-52.0); HEMOGLOBIN. 9.6 g/dL (14.0-18.0); LYMPHOCYTES % 14.2 % (20.0-50.0); MEAN PLATELET VOLUME 9.3 fl (7.4-10.4); MONOCYTES % 10.2 % (2.0-8.0); NEUTROPHILS % 72.3 % (40.0-76.0); PLATELET 150 x1000/uL (130-400); RED BLOOD CELL COUNT 3.15 mill/uL (4.7-6.1); RED CELL DISTRIBUTION WIDTH 21.5 % (11.6-14.6)
[2024-12-31 08:23] LABS: UREA NITROGEN BLOOD 47 mg/dL (9-23)
[2024-12-31 08:42] LABS: CREATININE 5.0 mg/dL (0.6-1.3)
[2024-12-31] MEDS: MORPHINE SULFATE 4 MG/ML INJ (FOR IV/IM USE) IV PRN (09:54)
[2024-12-31] MEDS: THIAMINE HCL 100MG TABLET PO SCH (09:55)
[2024-12-31] MEDS: ENOXAPARIN 30MG/0.3ML SYR SUBCUT SCH (09:55)
[2024-12-31] MEDS: ONDANSETRON HCL 4MG/2ML INJ IV PRN (14:28)
[2024-12-31] MEDS ORDERED: DEXTROSE 50% WATER 50ML SYRINGE IV PRN (14:45)
[2024-12-31] MEDS: BLOOD SUGAR DIAGNOSTIC STRIP TEST SCH ×2 (14:46→15:51)
[2024-12-31] MEDS: INSULIN LISPRO 100 UNITS/ML SUBCUT SCH (15:53)
[2024-12-31] MEDS ORDERED: INSULIN LISPRO 100 UNITS/ML SUBCUT SCH (17:40)
[2025-01-01] VITALS (13 sets, daily range): BP systolic 128–181; BP diastolic 75–93; PULSE 72–89; RESP 14–19; TEMP 36.1–36.6; O2SAT 94–100
[2025-01-01] MEDS: CALCIUM ACETATE 667MG CAPSULE PO SCH (13:08)
[2025-01-02] VITALS (15 sets, daily range): BP systolic 142–175; BP diastolic 76–97; PULSE 75–86; RESP 14–20; TEMP 36.2–36.7; O2SAT 98–99
[2025-01-02] MEDS: HYDROCODONE/ACETAMINOPHEN 5/325MG TABLET PO PRN (01:49)
[2025-01-02] MEDS: DIPHENHYDRAMINE 50MG/ML VIAL IV PRN (04:45)
[2025-01-03] VITALS (10 sets, daily range): BP systolic 122–181; BP diastolic 67–99; PULSE 75–86; RESP 20; TEMP 36.4–37.1; O2SAT 97–99
[2025-01-04] VITALS (15 sets, daily range): BP systolic 145–218; BP diastolic 75–129; PULSE 78–100; RESP 1–20; TEMP 36.3–36.8; O2SAT 98–100
[2025-01-04 22:26] LABS: BASOPHILS % 0.5 % (0.0-2.0); EOSINOPHILS % 2.3 % (0.0-5.0); HEMATOCRIT. 31.7 % (42.0-52.0); HEMOGLOBIN. 10.2 g/dL (14.0-18.0); LYMPHOCYTES % 10.6 % (20.0-50.0); MEAN PLATELET VOLUME 8.7 fl (7.4-10.4); MONOCYTES % 11.2 % (2.0-8.0); NEUTROPHILS % 75.4 % (40.0-76.0); PLATELET 228 x1000/uL (130-400); RED BLOOD CELL COUNT 3.40 mill/uL (4.7-6.1); RED CELL DISTRIBUTION WIDTH 20.3 % (11.6-14.6)
[2025-01-04 22:30] LABS: INR 1.1
[2025-01-04 22:39] LABS: CREATININE 4.3 mg/dL (0.6-1.3); UREA NITROGEN BLOOD 32.0 mg/dL (9-23)
[2025-01-05] VITALS (7 sets, daily range): BP systolic 154–185; BP diastolic 78–98; PULSE 83–98; RESP 19–20; TEMP 36.6–36.8; O2SAT 97–99
== END 2025-01-05 12:30 | disposition left against medical advice (07) | DRG 314 ==
LOC: ER 18:52 → EDBEDREQ 23:53 → EDBEDREQTM 23:53 → ENRESERV 23:59 → 8WST 12-31 00:34
PROVIDERS: ADMIT Internal Medicine Nephrology; ATTEND Internal Medicine Nephrology
PROC: 5A1D70Z Performance of Urinary Filtration, Intermittent, Less than 6 Hours Per Day (ICD-10-PCS; principal; 2024-12-31)
PROC: 02H633Z Insertion of Infusion Device into Right Atrium, Percutaneous Approach (ICD-10-PCS; 2024-12-31)
PROC: B548ZZA Ultrasonography of Superior Vena Cava, Guidance (ICD-10-PCS; 2024-12-31)
PROC: 5A1D70Z Performance of Urinary Filtration, Intermittent, Less than 6 Hours Per Day (ICD-10-PCS; 2025-01-01)
PROC: 5A1D70Z Performance of Urinary Filtration, Intermittent, Less than 6 Hours Per Day (ICD-10-PCS; 2025-01-02)
PROC: 5A1D70Z Performance of Urinary Filtration, Intermittent, Less than 6 Hours Per Day (ICD-10-PCS; 2025-01-03)
PROC: 5A1D70Z Performance of Urinary Filtration, Intermittent, Less than 6 Hours Per Day (ICD-10-PCS; 2025-01-04)
DX: T82.510A Breakdown (mechanical) of surgically created arteriovenous fistula, initial encounter (principal); I50.33 Acute on chronic diastolic (congestive) heart failure; N18.6 End stage renal disease; I13.2 Hypertensive heart and chronic kidney disease with heart failure and with stage 5 chronic kidney disease, or end stage renal disease; Z99.2 Dependence on renal dialysis; D63.8 Anemia in other chronic diseases classified elsewhere; E11.319 Type 2 diabetes mellitus with unspecified diabetic retinopathy without macular edema; F32.A Depression, unspecified; E83.39 Other disorders of phosphorus metabolism; E11.22 Type 2 diabetes mellitus with diabetic chronic kidney disease; Y71.2 Prosthetic and other implants, materials and accessory cardiovascular devices associated with adverse incidents; Z53.29 Procedure and treatment not carried out because of patient's decision for other reasons; Z91.148 Patient's other noncompliance with medication regimen for other reason; Y92.89 Other specified places as the place of occurrence of the external cause
CPT/HCPCS: 36415; 36556; 71045; 77001; 80048; 82962; 83036; 83735; 83880; 84484; 85025; 90935; 94070; 94640; 94664; 98960; 99285; A4606; C1752; J1200; J1650; J1815; J2270; J2405